=== PATIENT | female | born 1975 | race Caucasian/White ===

== ENCOUNTER 2022-04-14 17:22 | Emergency (ER) | payer OTHER ==
[~2022-04-14] VITALS: Ht 172.7 cm; Wt 74.8 kg
[2022-04-14] MEDS ORDERED: LAMO25TA5 PO (17:41)
[2022-04-14] MEDS ORDERED: LAMOTRIGINE 25 MG TABLET PO SCH (17:45)
[2022-04-14] MEDS ORDERED: IV NORMAL SALINE 100 ML BAG IV ONE (17:45)
[2022-04-14] MEDS ORDERED: LAMOTRIGINE 25 MG TABLET PO ONE (17:45)
[2022-04-14 17:57] LABS: HEMATOCRIT 39.5 % (31.2-41.9); MEAN CORPUSCULAR HEMOGLOBIN 34.4 uug (24.7-32.8); PLATELET COUNT (AUTO) 320 K/uL (179-408)
--- NOTE | 2022-04-14 18:08 | NUR ---
lamictal 50 mg po from pharmacy given.
[2022-04-14 18:09] LABS: ETHANOL 4 MG/DL (0-0)
--- NOTE | 2022-04-14 18:20 | NUR ---
pt says that she is very hungry. hospital tray provided per md order,
[2022-04-14 18:58] LABS: CARBON DIOXIDE 26 mmol/L (21-32); CHLORIDE 101 mmol/L (98-107); CREATININE 0.6 mg/dL (0.6-1.3); GLUCOSE 90 mg/dL (74-106); POTASSIUM 3.6 mmol/L (3.5-5.1); UREA NITROGEN, BLOOD 8 mg/dL (7-18)
[2022-04-14 19:04] LABS: ALANINE AMINOTRANSFERASE 42 U/L (14-59); ALKALINE PHOSPHATASE 81 U/L (50-136); ASPARTATE AMINOTRANSFERASE 49 U/L (15-37); BILIRUBIN,DIRECT 0.4 mg/dL (0.0-0.2); BILIRUBIN,TOTAL 1.4 mg/dL (0.2-1.0); TOTAL PROTEIN, SERUM 7.5 g/dL (6.4-8.2)
[2022-04-14 19:05] LABS: ACETAMINOPHEN < 2.0 ug/mL (10-30)
--- NOTE | 2022-04-14 19:10 | NUR ---
pt says feels better, pt wants to go home.
[2022-04-14 19:11] VITALS: BP 129/77
--- NOTE | 2022-04-14 19:11 | NUR ---
Patient discharged to home in stable condition. Written and verbal after care instructions given. Patient verbalizes understanding of instructions. Stressed follow up or return to ER for worsening s/s.pt walks in steady gait. pt says feels good and has money to go home.
== END 2022-04-14 19:12 | disposition home or self-care (01) ==
LOC: ER 17:25
DX: R42 Dizziness and giddiness (principal); F31.9 Bipolar disorder, unspecified; Z79.899 Other long term (current) drug therapy
CPT/HCPCS: 36415; 80048; 80076; 80299; 80320; 82542; 85025; 93005; 96360; 99285; J7040; A4663; G0480